=== PATIENT | male | born 1965 | race Native Hawaiian/Other Pacific Islander ===

== ENCOUNTER 2022-10-23 15:25 | Emergency (ER) | payer BC ==
[~2022-10-23] VITALS: Ht 185.4 cm; Wt 108.9 kg
[2022-10-23 15:30] VITALS: TEMP 98.6
[2022-10-23 17:55] VITALS: BP 116/68
== END 2022-10-23 17:57 | disposition home or self-care (01) ==
LOC: ED 15:25
DX: S93.692A Other sprain of left foot, initial encounter (principal); X50.1XXA Overexertion from prolonged static or awkward postures, initial encounter; Y92.512 Supermarket, store or market as the place of occurrence of the external cause
CPT/HCPCS: 96372; 99283; J1885

== ENCOUNTER 2023-04-22 10:16 | Emergency (ER) | payer BC ==
[~2023-04-22] VITALS: Ht 185.4 cm; Wt 104.3 kg
[2023-04-22 10:19] VITALS: BP 116/63; TEMP 98.1
== END 2023-04-22 11:22 | disposition home or self-care (01) ==
LOC: ED 10:16
DX: L08.9 Local infection of the skin and subcutaneous tissue, unspecified (principal)
CPT/HCPCS: 99282

== ENCOUNTER 2023-05-27 19:19 | Emergency (ER) | payer BC ==
[~2023-05-27] VITALS: Ht 185.4 cm; Wt 104.3 kg
[2023-05-27 19:25] VITALS: TEMP 97.5
[2023-05-27 20:20] LABS: PLATELET COUNT 240 K/uL (142-355)
[2023-05-27 20:26] LABS: POTASSIUM 3.7 mmol/L (3.6-5.2)
[2023-05-27 21:54] VITALS: BP 110/71
== END 2023-05-27 21:57 | disposition home or self-care (01) ==
LOC: ED 19:19
PROVIDERS: Family Medicine
DX: R10.9 Unspecified abdominal pain (principal); K21.9 Gastro-esophageal reflux disease without esophagitis; R16.1 Splenomegaly, not elsewhere classified; F17.210 Nicotine dependence, cigarettes, uncomplicated
CPT/HCPCS: 36415; 80053; 82150; 83690; 85027; 99283; J2270; Q9963